=== PATIENT | female | born 1975 | race African-American/Black ===

== ENCOUNTER → 2019-05-10 | Outpatient (CLI) | payer OTHER ==
[~2019-05-10] VITALS: Ht 337.8 cm; Wt 155.6 kg
[~2019-05-10] MED LIST: ARIMIDEX PO
--- NOTE | 2019-05-10 11:20 | P ---
[facility] [place] [address] PROCEDURE REPORT Name: KIMMY FERRER [id number] Admission: 05/10/19 Attend Phys: Chadwick Escalona Discharge: Date of : 75 Report #: [id number] THIS REPORT FOR: cc: Jo Samuel MD, Teresa MD McElhinney, Christian C. MD ~ CC: Chadwick Samuel MD DATE OF SERVICE: 05/10/2019 PROCEDURE PERFORMED: Upper endoscopy with biopsies. HISTORY OF PRESENT ILLNESS: The patient is a 43-year-old female with a history of obesity, who is preparing for a gastric bypass surgery apparently [place] in [place] in the near future. She needs an upper endoscopy preoperatively. She denies any symptoms other than very mild heartburn at times. Denies any nausea or vomiting. No dysphagia. Plan is for upper endoscopy, apparently they need biopsies as well. DESCRIPTION OF PROCEDURE: The risks and benefits of the procedure were explained to the patient, those risks including but not limited to bleeding, perforation and the risk of sedation. She understood these risks and gave informed consent. Sedation was given using propofol per anesthesia. Next, using a standard Olympus upper endoscope, the scope was placed in the patient's mouth and advanced under direct vision through the esophagus, stomach and into the second portion of the duodenum. The larynx was normal in appearance. The esophagus was normal throughout. The GE junction was normal. Overall, the gastric mucosa was normal. Biopsies were obtained to rule out H. pylori. The pylorus was normal and patent. The duodenal bulb, first and second portion were all normal. Biopsies were obtained to rule out the possibility of celiac sprue. The scope was then withdrawn and the procedure terminated. The patient tolerated the procedure well. IMPRESSION: Normal upper endoscopy. RECOMMENDATIONS: 1. Await biopsy results. 2. Okay to proceed with surgery from a GI standpoint. [facility] [address] [place] [address] PROCEDURE REPORT Name: KIMMY FERRER Room #: REG [facility] ChuckAydee#: [id number] Admission: 05/10/19 Attend Phys: Chadwick Escalona Discharge: Date of : 75 Report #: [id number] Thank you for allowing me to participate in her care. <ELECTRONICALLY SIGNED> By: Chadwick Ascencio MD 05/10/19 1120 [id number] [id number] Chadwick Ascencio MD /nt
--- NOTE | 2019-05-14 16:07 | PATH ---
[facility] [place] [address] PATHOLOGY RPT PROCEDURE Name: LAUREN HEARN Room #: REG [facility] Chuck.#: [id number] Admission: 05/10/19 Date of : 75 Discharge: Report #: [id number] Path Case #: [id number] [facility] Accession Number: [id number] . 01 Material submitted: . PART A: duodenum - BX OF DUODENUM PART B: stomach - BX OF GASTRIC . 01 Clinical history: . bariatric surgery A. Rule out sprue B. Rule out H. pylori . 02 Diagnosis: A. Small bowel mucosa, duodenum rule out sprue, endoscopic biopsy: - No diagnostic abnormalities. - Negative for villous blunting or increase in intraepithelial lymphocytes. . B. Gastric mucosa, gastritis rule out H. pylori, endoscopic biopsy: - Mild chronic gastritis. - Negative for intestinal metaplasia or atrophy. - Negative for Helicobacter pylori (properly-controlled immunohistochemical stain performed). . (IUV:mml; 05/14/2019) QLM 05/14/2019 1320 Local . 02 Electronically signed: . Sharyn Crawford MD, Pathologist NPI- [id number] . 01 Gross description: . A. The specimen is received in formalin, labeled "Zhou Hearnyla, BX of duodenum" and consists of 2 fragments of pink-sierra tissue measuring 0.8 x 0.3 cm and 0.4 x 0.3 cm which are entirely submitted in A1. . B. The specimen is received in formalin, labeled "HearnOlivera, BX of gastric" and consists of a few fragments of pink-sierra tissue measuring 1.1 x 0.6 x 0.2 cm in aggregate which are entirely submitted in B1. (SDY; 05/13/2019) SYU/SYU 05/13/2019 1501 Local . 02 Pathologist provided ICD-10: K29.50 . 02 CPT . [address] [address] PATHOLOGY RPT PROCEDURE Name: LAUREN HEARN Room #: REG [facility]#: [id number] Admission: 05/10/19 Date of : 75 Discharge: Report #: [id number] Path Case #: [id number] Specimen Comment: A courtesy copy of this report has been sent to [phone], [phone] Specimen Comment: [id number] Specimen Comment: Report sent to / DR KLEIN Performed at: [address], [place], [place] [id number] MD Terrance Calderon MD Phone: [phone] Performed at: [address] [id number] MD Sharyn Crawford MD Phone: [phone]
== END | disposition home or self-care (01) ==
LOC: GI 07:13 → PT 22:35 → GI 22:36
DX: R12 Heartburn (principal); K29.50 Unspecified chronic gastritis without bleeding; E11.9 Type 2 diabetes mellitus without complications; Z85.3 Personal history of malignant neoplasm of breast; Z98.890 Other specified postprocedural states; Z79.899 Other long term (current) drug therapy; Z90.710 Acquired absence of both cervix and uterus
CPT/HCPCS: 62110; 62900